=== PATIENT | female | born 1940 | race Caucasian/White ===

== ENCOUNTER 2019-03-03 11:18 | Outpatient (CLI) | payer MEDICARE | END 2019-03-03 23:59 | disposition home or self-care (01) | LOC: CFH 11:18 | PROVIDERS: ATTEND Family Medicine | DX: M51.36 Other intervertebral disc degeneration, lumbar region (principal); M48.02 Spinal stenosis, cervical region; M41.86 Other forms of scoliosis, lumbar region; M48.061 Spinal stenosis, lumbar region without neurogenic claudication; M47.817 Spondylosis without myelopathy or radiculopathy, lumbosacral region; M50.33 Other cervical disc degeneration, cervicothoracic region; G89.29 Other chronic pain | CPT/HCPCS: 72050; 72110 ==

== ENCOUNTER 2019-04-03 14:33 | Emergency (ER) | payer MEDICARE ==
[~2019-04-03] VITALS: Ht 172.7 cm; Wt 81.0 kg
--- NOTE | 2019-04-03 15:13 | NUR ---
GRAPHIC ARTS TECHNICIAN: PT TO ROOM FROM [id number] VIA W/C
--- NOTE | 2019-04-03 15:35 | NUR ---
PT PRESENTED TO ED WITH N/V AND DIARRHEA SINCE LAST NIGHT. PT PLACED IN ROOM AND PLACED ON BP AND CONT. PULSE OXIMETER. ASSESSMENT COMPLETED.
[2019-04-03 15:55] LABS: BASOPHILS # (AUTO) 0.02 x10^3/uL (0-0.1); BASOPHILS % (AUTO) 0 % (0-1); EOSINOPHILS # (AUTO) 0.05 x10^3/uL (0-0.4); EOSINOPHILS % (AUTO) 1 % (1-7); LYMPHOCYTES # (AUTO) 0.45 x10^3/uL (1-3.4); LYMPHOCYTES % (AUTO) 10 % (22-44); MD NO; MEAN CORPUSCULAR HEMOGLOBIN 28.6 pg (27.0-34.8); MEAN CORPUSCULAR HGB CONC 32.9 g/dL (32.4-35.8); MEAN CORPUSCULAR VOLUME 86.8 fL (80-100); MEAN PLATELET VOLUME 8.8 fL (7.4-10.4); MONOCYTES # (AUTO) 0.25 x10^3/uL (0.2-0.8); MONOCYTES % (AUTO) 6 % (2-9); NEUTROPHILS # (AUTO) 3.72 x10^3/uL (1.8-6.8); NEUTROPHILS % (AUTO) 83 % (42-75); PLATELET COUNT 191 x10^3/uL (130-400); RED CELL DISTRIBUTION WIDTH 14.7 % (9.6-15.2)
[2019-04-03] MEDS ORDERED: ONDANSETRON 2MG/ML, 2ML ONE (15:55)
[2019-04-03] MEDS ORDERED: ONDANSETRON 2MG/ML, 2ML IVPush ONE (16:00)
[2019-04-03] MEDS ORDERED: SODIUM CHLORIDE 0.9% 1,000ML IVBOLUS ONE (16:00)
[2019-04-03] MEDS ORDERED: SODIUM CHLORIDE FLUSH 10ML SYR IVF ONE (16:00)
[2019-04-03 16:08] LABS: ALANINE AMINOTRANSFERASE 25 U/L (12-78); ALBUMIN 3.8 g/dL (3.4-5.0); ANION GAP 9 mmol/L (5-15); CALCIUM 8.5 mg/dL (8.5-10.1); CHLORIDE 109 mmol/L (98-107); CREATININE 1.13 mg/dL (0.55-1.02)
[2019-04-03 16:10] LABS: ALKALINE PHOSPHATASE 50 U/L (45-117); BILIRUBIN,TOTAL 0.8 mg/dL (0.2-1.0); TOTAL PROTEIN 6.9 g/dL (6.4-8.2)
[2019-04-03 17:05] LABS: MICROSCOPIC AUTO
[2019-04-03 17:07] LABS: CULTURE INDICATED? YES
[2019-04-03] MEDS ORDERED: OMNIPAQUE 350 MG/ML, 100ML BOTTLE ONE (17:11)
[2019-04-03] MEDS ORDERED: CEFTRIAXONE PMX 1GM/50ML 50 ML IV ONE (17:30)
[2019-04-03] MEDS ORDERED: CEFTRIAXONE PMX 1GM/50ML 50 ML ONE (17:31)
--- NOTE | 2019-04-03 17:37 | NUR ---
Elisa RN note: Pt ambulatory to bathroom and back to bed with steady gait. IV abx hung per MAR, blood cultures x2 drawn prior to admin. Pt positioned for comfort in bed, NADN, denies needs. POC discussed with pt and her who is at bedside. Pt's given broth to drink per request.
[2019-04-03] MEDS ORDERED: BUSP5TAB2 PO (17:41)
[2019-04-03] MEDS ORDERED: LORA-446 PO (17:42)
[2019-04-03] MEDS ORDERED: THIO50TA PO (17:45)
--- NOTE | 2019-04-03 17:46 | NUR ---
Pt given ice chips and broth per request, ok per Dr. Moore.
--- NOTE | 2019-04-03 18:28 | NUR ---
received bed and will call repor to prabha
--- NOTE | 2019-04-03 18:36 | NUR ---
report given to prabha benedict
[2019-04-03 18:37] VITALS: BP 125/50
--- NOTE | 2019-04-03 18:57 | NUR ---
pt wanting to go home. md aware and pt discharged home with rx and follow up.
== END 2019-04-03 18:58 | disposition home or self-care (01) ==
LOC: ED 16:27 → UNDOADMIN 17:44 → EDIP 17:44 → ED 18:58
DX: K52.9 Noninfective gastroenteritis and colitis, unspecified (principal); N30.00 Acute cystitis without hematuria; E03.9 Hypothyroidism, unspecified; Z88.2 Allergy status to sulfonamides
CPT/HCPCS: 36415; 74177; 80053; 81001; 83605; 83690; 85025; 87040; 87086; 93005; 96361; 96365; 96375; 99284; J0696; J2405; J7030; Q9967